=== PATIENT | female | born 1955 | race Hispanic/Latino ===

== ENCOUNTER 2016-07-30 13:27 | Emergency (ER) | payer OTHER ==
[2016-07-30 13:59] VITALS: TEMP 98.3; O2SAT 98
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
[2016-07-30 15:35] VITALS: BP 144/86; PULSE 80; RESP 18
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
== END 2016-07-30 15:34 | disposition home or self-care (01) ==
LOC: ED 13:27
DX: M54.2 Cervicalgia (principal); M25.511 Pain in right shoulder
CPT/HCPCS: 73030; 96372; 99284; J1885